=== PATIENT | male | born 1960 | race Caucasian/White ===

== ENCOUNTER 2018-03-16 06:51 | Inpatient (IN) | payer MEDICAID ==
[2018-03-16 07:26] LABS: BASO % 0.7 % (0.0-2.0); EOS # 0.2 K/uL (0.0-0.7); EOS % 2.9 % (0.0-4.0); LYMPH # 1.6 K/uL (1.0-4.3); LYMPH % 22.9 % (20.0-40.0); MEAN CORPUSCULAR HEMOGLOBIN 27.7 pg (27.0-31.0); MEAN CORPUSCULAR HGB CONC 33.9 g/dL (33.0-37.0); MEAN PLATELET VOLUME 7.9 fL (7.2-11.7); MONO # 0.7 K/uL (0.0-0.8); MONO % 10.1 % (0.0-10.0); NEUT # 4.5 K/uL (1.8-7.0); NEUT % 63.4 % (50.0-75.0); RBC 2.32 Mil/uL (4.40-5.90); RED CELL DISTRIBUTION WIDTH 17.3 % (11.5-14.5)
[2018-03-16 07:34] LABS: INR 1.1; PROTHROMBIN TIME 11.6 SECONDS (9.7-12.2)
[2018-03-16 07:40] LABS: HEMOGLOBIN 6.4 g/dL (12.0-18.0); MEAN CELL VOLUME 81.7 fL (80.0-94.0)
[2018-03-16 08:01] LABS: ALB/GLOB RATIO 1.2 (1.0-2.1); ALBUMIN 4.1 g/dL (3.5-5.0); CALCIUM 10.5 mg/dl (8.6-10.4)
--- NOTE | 2018-03-16 08:15 | C.PDOC ---
History Of Present Illness 58-year-old male, presents to the emergency department with complaints of two week duration of chest discomfort, that radiates to neck. Patient was seen at [facility] and is s/p two stents. He is compliant with medications, he has a Hx of normal cardiac nuclear study, cardiac echo with mild hypokinesis and and CABG (five vessel). Additionally, patient reports a Hx of blood transfusion , two units of blood for upper GI bleed, two weeks ago at [facility]. PMD Anabel Friedman MD. Time Seen by Provider: 03/16/18 07:04 Chief Complaint (Nursing): Chest Pain History Per: Patient History/Exam Limitations: no limitations Onset/Duration Of Symptoms: Waxing/Waning Past Medical History Reviewed: Historical Data, Nursing Documentation, Vital Signs Vital Signs: Last Vital Signs Temp 98.1 F 03/16/18 09:41 Pulse 88 03/16/18 09:41 Resp 13 03/16/18 09:41 BP 108/71 03/16/18 09:41 Pulse Ox 95 03/16/18 10:01 - Medical History PMH: Diabetes, HTN, Hypercholesterolemia, Kidney Stones Surgical History: Coronary Stent Family History: States: No Known Family Hx - Social History Hx Tobacco Use: Yes Hx Alcohol Use: No Hx Substance Use: No - Immunization History Hx Influenza Vaccination: Yes Review Of Systems Constitutional: Negative for: Fever, Weakness Cardiovascular: Positive for: Other (chest discomfort) Respiratory: Negative for: Shortness of Breath Gastrointestinal: Negative for: Vomiting Musculoskeletal: Positive for: Neck Pain. Negative for: Arm Pain Neurological: Negative for: Weakness, Numbness, Headache, Dizziness Physical Exam - Physical Exam Appears: Non-toxic, No Acute Distress Skin: Warm, Dry, Pale Head: Normacephalic Eye(s): bilateral: PERRL, EOMI, Conjunctiva Pale Nose: Normal Oral Mucosa: Moist Lips: Normal Appearing Neck: Normal ROM Cardiovascular: Rhythm Regular, No Murmur Respiratory: Normal Breath Sounds, No Accessory Muscle Use Gastrointestinal/Abdominal: Soft, No Tenderness Extremity: Normal ROM, No Deformity, No Swelling Neurological/Psych: Oriented x3, Normal Speech ED Course And Treatment - Laboratory Results Result Diagrams: 03/16/18 07:20 03/16/18 07:20 Lab Interpretation: Abnormal (trop 0.136, HGB + anemia) ECG: Interpreted By Me ECG Rhythm: Sinus Rhythm ECG Interpretation: Normal Rate From EC O2 Sat by Pulse Oximetry: 95 (RA) Pulse Ox Interpretation: Normal - Radiology CXR: Interpreted by Me CXR Interpretation: Yes: No Acute Disease Progress Note: type and cross for PRBC's. SLNTG for chest discomfort (chronic) . no ASA due to bleeding and symptomatic anemia Reevaluation Time: 08:35 Reassessment Condition: Improved - Physician Consult Information Outcome Of Conversation: [phone]: d/w Dr. Friedman- PMD- ok to admit tele Medical Decision Making Medical Decision Making: symptomatic anemia and NSTEMI angina due to heart dz vs symptomatic anemia due to upper GIB (now worse on anticoag for stents x 2- 2 wks ago. Disposition Doctor Will See Patient In The: Hospital Counseled Patient/Family Regarding: Studies Performed, Diagnosis - Disposition Disposition: HOSPITALIZED Disposition Time: 08:37 Condition: GOOD - Clinical Impression Clinical Impression: Chest discomfort, Acute non-ST segment elevation myocardial infarction, UGIB ( upper gastrointestinal bleed) - Scribe Statement The provider has reviewed the documentation as recorded by the Scribe (Du Marrero) All medical record entries made by the Scribe were at my direction and personally dictated by me. I have reviewed the chart and agree that the record accurately reflects my personal performance of the history, physical exam, medical decision making, and the department course for this patient. I have also personally directed, reviewed, and agree with the discharge instructions and disposition.
[2018-03-16 08:18] LABS: TROPONIN I 0.136 ng/mL (0.00-0.120)
--- NOTE | 2018-03-16 08:26 | RAD ---
PROCEDURE: CHEST RADIOGRAPH, 1 VIEW HISTORY: SOB COMPARISON: None available. FINDINGS: LUNGS: Clear. PLEURA: No pneumothorax or pleural fluid seen. CARDIOVASCULAR: Normal heart size. CABG. No congestive change. OSSEOUS STRUCTURES: No significant abnormalities. VISUALIZED UPPER ABDOMEN: Normal. OTHER FINDINGS: None. IMPRESSION: No active disease.
--- NOTE | 2018-03-16 12:43 | CP.PCM.PN ---
Subjective - Date & Time of Evaluation Date of Evaluation: 03/16/18 Time of Evaluation: 12:00 - Subjective Subjective: Mr. Morgan is a 58 years old gentleman with history of diabetes complicated by coronary artery disease. He had coronary artery bypass surgery for triple vessel disease about 6 years ago. 3 months ago he was admitted to [facility] with chest pain and minimally elevated troponin, he had a stent to the OM 2. 2 weeks ago he was admitted with GI bleed, again 2 stents were placed in the saphenous vein to the OM 2. Endoscopy showed gastric tumor to be evaluated when more stable. At this time he was evaluated as outpatient with hemoglobin of 9 on oral iron supplement, was admitted again through the emergency department with chest pain, minimally elevated troponin, and hemoglobin of 7. His latest stress test was negative for ischemia prior to the percutaneous intervention and the ejection fraction is 70%. We will hold on any invasive management since apparently it's created more issues rather than solutions. We will attempt to wait 6 months on 2 agents antiplatelets in addition to other 70 gastric tumor. The latest LDL was 20. Objective - Vital Signs/Intake and Output Vital Signs (last 24 hours): Temp Pulse Resp BP Pulse Ox 98.3 F 90 18 104/63 98 03/16/18 11:25 03/16/18 11:25 03/16/18 11:25 03/16/18 11:25 03/16/18 11:25 Intake and Output: 03/16/18 03/16/18 06:59 18:59 Intake Total 325 Balance 325 - Medications Medications: Current Medications Acetaminophen (Tylenol 325mg Tab) 650 mg PO Q6 PRN PRN Reason: Fever >100.4 F Aspirin (Ecotrin) 1 mg PO DAILY [facility] Clopidogrel Bisulfate (Plavix) 75 mg PO DAILY [facility] Docusate Sodium (Colace) 100 mg PO BID PRN PRN Reason: Constipation Home Med (Famotidine) 1 tab PO DAILY [facility] Home Med (Januvia) 1 tab PO DAILY [facility] Home Med (Metformin Hcl [Metformin Hcl]) 1 tab PO DAILY [facility] Sodium Chloride (Sodium Chloride 0.9%) 1,000 mls @ 100 mls/hr IV .Q10H [facility] Insulin Human Regular (Novolin R) unit SC ACHS [facility] PRN Reason: Protocol Metoprolol Tartrate (Lopressor) 50 mg PO BID [facility] Ondansetron HCl (Zofran Odt) 4 mg PO TID PRN PRN Reason: Nausea/Vomiting Oxycodone/Acetaminophen (Percocet 5/325 Mg Tab) 1 tab PO Q4H PRN PRN Reason: Pain, moderate (4-7) Stop: 03/19/18 12:31 Rosuvastatin Calcium (Crestor) 20 mg PO HS [facility] Tamsulosin HCl (Flomax) 0.4 mg PO DAILY [facility] - Labs Labs: 03/16/18 07:20 03/16/18 07:20 PT 11.6 SECONDS (9.7-12.2) 03/16/18 07:20 INR 1.1 03/16/18 07:20 APTT 32 SECONDS (21-34) 03/16/18 07:20 - Constitutional Appears: Non-toxic - Head Exam Head Exam: ATRAUMATIC - Eye Exam Eye Exam: EOMI - ENT Exam ENT Exam: Mucous Membranes Moist - Neck Exam Neck Exam: absent: Lymphadenopathy, Thyromegaly - Respiratory Exam Respiratory Exam: Clear to Ausculation Bilateral. absent: Rales - Cardiovascular Exam Cardiovascular Exam: REGULAR RHYTHM, Murmur - GI/Abdominal Exam GI & Abdominal Exam: Soft, Normal Bowel Sounds. absent: Organomegaly - Rectal Exam Rectal Exam: Deferred, Black Stool - Extremities Exam Extremities Exam: Normal Capillary Refill. absent: Calf Tenderness - Neurological Exam Neurological Exam: Alert, Oriented x3 - Psychiatric Exam Psychiatric exam: Normal Mood - Skin Skin Exam: Dry Assessment and Plan (1) Status post aorto-coronary artery bypass graft Assessment & Plan: Significant atherosclerotic heart disease with observe Status: Chronic (2) Chest discomfort Assessment & Plan: Minimally elevated troponin we'll hold on intervention for now Status: Acute (3) UGIB (upper gastrointestinal bleed) Assessment & Plan: Follow-up with GI, unfortunately we have to follow up in 2 antiplatelets agents post drug-eluting stents Status: Acute (4) Diabetes 1.5, managed as type 2 Status: Chronic - Assessment and Plan (Free Text) Plan: Adequately controlled as outpatient on coverage for now
[2018-03-16] MEDS ORDERED: Peg-Electrolyte Oral Soln 4L (Golytely) PO ONE (15:30)
[2018-03-16] MEDS: (Novolin R) Insulin Human Regular 100 units/ml vial SC SCH ×2 (16:30→21:54)
[2018-03-16] MEDS: Sodium Chloride 0.9% 1,000 ML IV SCH ×2 (16:51→23:03)
[2018-03-16] MEDS ORDERED: Bisacodyl 5mg EC Tab PO ONE (17:00)
[2018-03-16 22:17] LABS: HEMOGLOBIN 7.5 g/dL (12.0-18.0); MEAN CELL VOLUME 82.9 fL (80.0-94.0); MEAN CORPUSCULAR HEMOGLOBIN 28.2 pg (27.0-31.0); MEAN CORPUSCULAR HGB CONC 34.1 g/dL (33.0-37.0); MEAN PLATELET VOLUME 8.1 fL (7.2-11.7); RBC 2.67 Mil/uL (4.40-5.90); RED CELL DISTRIBUTION WIDTH 17.1 % (11.5-14.5)
[2018-03-16 22:20] LABS: URINE BILIRUBIN NEGATIVE (NEGATIVE); URINE BLOOD NEGATIVE (NEGATIVE); URINE CLARITY Clear (Clear); URINE COLOR Straw (YELLOW); URINE GLUCOSE (UA) NORMAL (Normal); URINE LEUKOCYTE ESTERASE NEG Leu/uL (Negative); URINE PROTEIN NEGATIVE (NEGATIVE); URINE UROBILINOGEN NORMAL mg/dL (0.2-1.0)
[2018-03-17 06:32] LABS: BASO % 0.3 % (0.0-2.0); EOS # 0.1 K/uL (0.0-0.7); EOS % 1.1 % (0.0-4.0); HEMOGLOBIN 7.3 g/dL (12.0-18.0); LYMPH # 1.1 K/uL (1.0-4.3); LYMPH % 12.3 % (20.0-40.0); MEAN CORPUSCULAR HEMOGLOBIN 27.7 pg (27.0-31.0); MEAN CORPUSCULAR HGB CONC 33.8 g/dL (33.0-37.0); MEAN PLATELET VOLUME 7.7 fL (7.2-11.7); MONO # 0.8 K/uL (0.0-0.8); MONO % 9.8 % (0.0-10.0); NEUT # 6.6 K/uL (1.8-7.0); NEUT % 76.5 % (50.0-75.0); RBC 2.63 Mil/uL (4.40-5.90); RED CELL DISTRIBUTION WIDTH 17.6 % (11.5-14.5); WHITE BLOOD COUNT 8.6 K/uL (4.8-10.8)
[2018-03-17 06:53] LABS: ALB/GLOB RATIO 1.2 (1.0-2.1); ALBUMIN 3.7 g/dL (3.5-5.0); ALT/SGPT 24 U/L (21-72); AST/SGOT 19 U/L (17-59); BLOOD UREA NITROGEN 18 mg/dL (9-20); CALCIUM 9.9 mg/dl (8.6-10.4); GFR AFRICAN-AMERICAN > 60; GFR NON-AFRICAN AMERICAN 56; HDL CHOLESTEROL 24 mg/dL (30-70)
[2018-03-17] MEDS: (Novolin R) Insulin Human Regular 100 units/ml vial SC SCH ×4 (07:00→21:36)
[2018-03-17 07:08] LABS: LDL CHOLESTEROL < 30 mg/dL (0-129)
[2018-03-17] MEDS: Sodium Chloride 0.9% 1,000 ML IV SCH (08:30)
--- NOTE | 2018-03-17 12:15 | CARD ---
APPROVED REPORT EKG Measurement Heart [id number] <Conclusion> Sinus rhythm with 1st degree AV block Left axis deviation Right bundle branch block Abnormal ECG
--- NOTE | 2018-03-17 12:15 | CARD ---
APPROVED REPORT EKG Measurement Heart [id number] <Conclusion> Sinus rhythm with 1st degree AV block Left axis deviation Right bundle branch block Abnormal ECG
[2018-03-17] MEDS: Oxycodone/Acetaminophen 5/325 mg Tab PO PRN ×2 (14:36→21:32)
[2018-03-17] MEDS: guaiFENesin 200 mg/10 ml Syrup UD PO PRN ×3 (15:02→23:58)
--- NOTE | 2018-03-17 15:35 | CP.PCM.CON ---
History of Present Illness - History of Present Illness History of Present Illness: 58 year old male with a history of DM, HTN, HL, BPH, CAD s/p CABG and recent PCI with ANN[facility], admitted with chest pain, found to have severe anemia. The patient notes to dark stools and long stand blood streaked stool. He reports intermittent chest pain for about 2-3 weeks, associated with some shortness of breath. He denies cough, fevers and chills. He is s/p 1U PRBC and reports to feeling better but still feels tired. Past medical history: DM, HTN, HL, BPH, CAD s/p CABG and recent PCI with [facility] Past surgical history: CABG Family history: Denies hematologic and oncologic problems Social history: Former tobacco abuse, denies alcohol and illicit drug use. Allergies: NKA Review of systems: All remaining review of systems including HEENT, cardiovascular, respiratory, gastrointestinal, genitourinary,musculoskeletal, dermatologic, neurologic, and psychiatric are negative unless mentioned in the HPI. Past Patient History - Past Medical History & Family History Past Medical History?: Yes - Past Social History Smoking Status: Never Smoked - CARDIAC Hx Hypercholesterolemia: Yes Hx Hypertension: Yes - RENAL Hx Kidney Stones: Yes - MUSCULOSKELETAL/RHEUMATOLOGICAL Hx Falls: No - PSYCHIATRIC Hx Substance Use: No - SURGICAL HISTORY Hx Coronary Stent: Yes Meds Allergies/Adverse Reactions: Allergies Allergy/AdvReac Type Severity Reaction Status Date / Time No Known Allergies Allergy Verified 03/07/15 11:07 - Medications Medications: Current Medications Acetaminophen (Tylenol 325mg Tab) 650 mg PO Q6 PRN PRN Reason: Fever >100.4 F Aspirin (Ecotrin) 81 mg PO DAILY [facility] Last Admin: 03/17/18 12:46 Dose: 81 mg Clopidogrel Bisulfate (Plavix) 75 mg PO DAILY [facility] Last Admin: 03/17/18 12:45 Dose: 75 mg Docusate Sodium (Colace) 100 mg PO BID PRN PRN Reason: Constipation Famotidine (Pepcid) 20 mg PO DAILY [facility] Last Admin: 03/17/18 12:38 Dose: 20 mg Guaifenesin (Robitussin) 200 mg PO Q4H PRN PRN Reason: Cough and congestion Last Admin: 03/17/18 15:02 Dose: 200 mg Sodium Chloride (Sodium Chloride 0.9%) 1,000 mls @ 100 mls/hr IV .Q10H [facility] Last Admin: 03/17/18 08:30 Dose: Not Given Insulin Human Regular (Novolin R) 0 unit SC ACHS [facility] PRN Reason: Protocol Last Admin: 03/17/18 11:30 Dose: Not Given [facility] Last Admin: 03/17/18 08:00 Dose: Not Given Metoprolol Tartrate (Lopressor) 50 mg PO BID [facility] Last Admin: 03/17/18 12:45 Dose: 50 mg Ondansetron HCl (Zofran Odt) 4 mg PO TID PRN PRN Reason: Nausea/Vomiting Ondansetron HCl (Zofran Inj) 8 mg IVP Q6H [facility] Last Admin: 03/17/18 14:30 Dose: Not Given Oxycodone/Acetaminophen (Percocet 5/325 Mg Tab) 1 tab PO Q4H PRN PRN Reason: Pain, moderate (4-7) Stop: 03/19/18 12:31 Last Admin: 03/17/18 14:36 Dose: 1 tab Rosuvastatin Calcium (Crestor) 20 mg PO [facility] Last Admin: 03/16/18 21:21 Dose: 20 mg Sitagliptin Phosphate (Januvia) 100 mg PO DAILY [facility] Last Admin: 03/17/18 10:00 Dose: Not Given Tamsulosin HCl (Flomax) 0.4 mg PO DAILY [facility] Last Admin: 03/17/18 12:44 Dose: 0.4 mg Physical Exam - Head Exam Head Exam: ATRAUMATIC - Eye Exam Eye Exam: Normal appearance - ENT Exam ENT Exam: Mucous Membranes Dry - Respiratory Exam Respiratory Exam: NORMAL BREATHING PATTERN - Cardiovascular Exam Cardiovascular Exam: +S1, +S2 - GI/Abdominal Exam GI & Abdominal Exam: Normal Bowel Sounds Results - Vital Signs Recent Vital Signs: Last Vital Signs Temp 98.2 F 03/17/18 08:30 Pulse 80 03/17/18 08:30 Resp 18 03/17/18 08:30 BP 111/77 03/17/18 08:30 Pulse Ox 94 L 03/17/18 08:30 - Labs Result Diagrams: 03/17/18 06:26 03/17/18 06:26 Labs: Laboratory Results - last 24 hr 03/16/18 03/16/18 03/16/18 16:22 21:30 22:10 WBC RBC Hgb Hct MCV MCH MCHC RDW Plt Count MPV Neut % (Auto) Lymph % (Auto) Dillon % (Auto) Eos % (Auto) Baso % (Auto) Neut # (Auto) Lymph # (Auto) Dillon # (Auto) Eos # (Auto) Baso # (Auto) Sodium Potassium Chloride Carbon Dioxide Anion Gap BUN Creatinine Est GFR ( Amer) Est GFR (Non-Af Amer) POC Glucose (mg/dL) 122 H 167 H Random Glucose Hemoglobin A1c Calcium Total Bilirubin AST ALT Alkaline Phosphatase Troponin I Total Protein Albumin Globulin Albumin/Globulin Ratio Triglycerides Cholesterol LDL Cholesterol Direct HDL Cholesterol Alpha Fetoprotein Carcinoembryonic Ag CA 19-9 Antigen TSH 3rd Generation Urine Color Straw Urine Clarity Clear Urine pH 6.0 Ur Specific [place] 1.005 Urine Protein Negative Urine Glucose (UA) Normal Urine Ketones Negative Urine Blood Negative Urine Nitrate Negative Urine Bilirubin Negative Urine Urobilinogen Normal Ur Leukocyte Esterase Neg Urine RBC (Auto) < 1 Stool Occult Blood 03/16/18 03/16/18 03/16/18 22:10 22:10 22:10 WBC 9.0 RBC 2.67 L Hgb 7.5 L Hct 22.2 L MCV 82.9 MCH 28.2 MCHC 34.1 RDW 17.1 H Plt Count 368 MPV 8.1 Neut % (Auto) Lymph % (Auto) Dillon % (Auto) Eos % (Auto) Baso % (Auto) Neut # (Auto) Lymph # (Auto) Dillon # (Auto) Eos # (Auto) Baso # (Auto) Sodium Potassium Chloride Carbon Dioxide Anion Gap BUN Creatinine Est GFR ( Amer) Est GFR (Non-Af Amer) POC Glucose (mg/dL) Random Glucose Hemoglobin A1c Calcium Total Bilirubin AST ALT Alkaline Phosphatase Troponin I 0.1490 H* Total Protein Albumin Globulin Albumin/Globulin Ratio Triglycerides Cholesterol LDL Cholesterol Direct HDL Cholesterol Alpha Fetoprotein Carcinoembryonic Ag CA 19-9 Antigen TSH 3rd Generation Urine Color Urine Clarity Urine pH Ur Specific [place] Urine Protein Urine Glucose (UA) Urine Ketones Urine Blood Urine Nitrate Urine Bilirubin Urine Urobilinogen Ur Leukocyte Esterase Urine RBC (Auto) Stool Occult Blood Positive H 03/17/18 03/17/18 03/17/18 05:58 06:26 06:26 WBC 8.6 RBC 2.63 L Hgb 7.3 L Hct 21.6 L MCV 82.0 MCH 27.7 MCHC 33.8 RDW 17.6 H Plt Count 372 MPV 7.7 Neut % (Auto) 76.5 H Lymph % (Auto) 12.3 L Dillon % (Auto) 9.8 Eos % (Auto) 1.1 Baso % (Auto) 0.3 Neut # (Auto) 6.6 Lymph # (Auto) 1.1 Dillon # (Auto) 0.8 Eos # (Auto) 0.1 Baso # (Auto) 0.0 Sodium 137 Potassium 4.1 Chloride 105 Carbon Dioxide 21 L Anion Gap 15 BUN 18 Creatinine 1.3 Est GFR ( Amer) > 60 Est GFR (Non-Af Amer) 56 POC Glucose (mg/dL) 167 H Random Glucose 170 H Hemoglobin A1c Calcium 9.9 Total Bilirubin 0.9 AST 19 ALT 24 Alkaline Phosphatase 65 Troponin I 0.1580 H* Total Protein 6.7 Albumin 3.7 Globulin 3.1 Albumin/Globulin Ratio 1.2 Triglycerides 237 H Cholesterol 85 LDL Cholesterol Direct < 30 HDL Cholesterol 24 L Alpha Fetoprotein Carcinoembryonic Ag CA 19-9 Antigen TSH 3rd Generation 0.34 L Urine Color Urine Clarity Urine pH Ur Specific [place] Urine Protein Urine Glucose (UA) Urine Ketones Urine Blood Urine Nitrate Urine Bilirubin Urine Urobilinogen Ur Leukocyte Esterase Urine RBC (Auto) Stool Occult Blood 03/17/18 03/17/18 03/17/18 06:26 14:04 14:04 WBC RBC Hgb Hct MCV MCH MCHC RDW Plt Count MPV Neut % (Auto) Lymph % (Auto) Dillon % (Auto) Eos % (Auto) Baso % (Auto) Neut # (Auto) Lymph # (Auto) Dillon # (Auto) Eos # (Auto) Baso # (Auto) Sodium Potassium Chloride Carbon Dioxide Anion Gap BUN Creatinine Est GFR ( Amer) Est GFR (Non-Af Amer) POC Glucose (mg/dL) Random Glucose Hemoglobin A1c 6.2 Calcium Total Bilirubin AST ALT Alkaline Phosphatase Troponin I Total Protein Albumin Globulin Albumin/Globulin Ratio Triglycerides Cholesterol LDL Cholesterol Direct HDL Cholesterol Alpha Fetoprotein 1.2 Carcinoembryonic Ag 0.7 CA 19-9 Antigen 8.1 TSH 3rd Generation Urine Color Urine Clarity Urine pH Ur Specific [place] Urine Protein Urine Glucose (UA) Urine Ketones Urine Blood Urine Nitrate Urine Bilirubin Urine Urobilinogen Ur Leukocyte Esterase Urine RBC (Auto) Stool Occult Blood Assessment & Plan (1) Anemia Assessment and Plan: GI bleeding; GI evaluation in progress will evaluate iron, b12, folate stores and replenish as needed will transfuse 2U PRBC today Thank you for this interesting consult. Status: Acute
--- NOTE | 2018-03-17 16:47 | CP.PCM.HP ---
History of Present Illness - History of Present Illness History of Present Illness: Mr. Morgan is a 58 years old gentleman with history of diabetes complicated by coronary artery disease. He had coronary artery bypass surgery for triple vessel disease about 6 years ago. 3 months ago he was admitted to [facility] with chest pain and minimally elevated troponin, he had a stent to the OM 2. 2 weeks ago he was admitted with GI bleed, again 2 stents were placed in the saphenous vein to the OM 2. Endoscopy showed gastric tumor to be evaluated when more stable. At this time he was evaluated as outpatient with hemoglobin of 9 on oral iron supplement, was admitted again through the emergency department with chest pain, minimally elevated troponin, and hemoglobin of 7. His latest stress test was negative for ischemia prior to the percutaneous intervention and the ejection fraction is 70%. We will hold on any invasive management since apparently it's created more issues rather than solutions. We will attempt to wait 6 months on 2 agents antiplatelets in addition to other 70 gastric tumor. The latest LDL was 20. Present on Admission - Present on Admission Any Indicators Present on Admission: No Review of Systems - Review of Systems Systems not reviewed;Unavailable: Unstable Vital Signs - Constitutional Constitutional: Anorexia, Weakness - EENT Eyes: absent: Discharge Ears: absent: Ear Discharge, Dizziness Nose/Mouth/Throat: absent: Epistaxis - Cardiovascular Cardiovascular: Chest Pain. absent: Acrocyanosis, Diaphoresis, Dyspnea, Palpitations, Pedal Edema, Syncope - Respiratory Respiratory: absent: Cough, Dyspnea, Hemoptysis - Gastrointestinal Gastrointestinal: Abdominal Pain, Diarrhea, Melena. absent: Nausea, Vomiting - Genitourinary Genitourinary: absent: Change in Urinary Stream Past Patient History - Past Medical History & Family History Past Medical History?: Yes - Past Social History Smoking Status: Never Smoked - CARDIAC Hx Hypercholesterolemia: Yes Hx Hypertension: Yes - RENAL Hx Kidney Stones: Yes - MUSCULOSKELETAL/RHEUMATOLOGICAL Hx Falls: No - PSYCHIATRIC Hx Substance Use: No - SURGICAL HISTORY Hx Coronary Stent: Yes Meds Allergies/Adverse Reactions: Allergies Allergy/AdvReac Type Severity Reaction Status Date / Time No Known Allergies Allergy Verified 03/07/15 11:07 Physical Exam - Constitutional Appears: Non-toxic - Head Exam Head Exam: ATRAUMATIC - Eye Exam Eye Exam: EOMI - ENT Exam ENT Exam: Mucous Membranes Moist - Neck Exam Neck exam: Negative for: Lymphadenopathy, Thyromegaly - Respiratory Exam Respiratory Exam: absent: Chest Wall Tenderness - Cardiovascular Exam Cardiovascular Exam: REGULAR RHYTHM, Systolic Murmur - GI/Abdominal Exam GI & Abdominal Exam: Normal Bowel Sounds. absent: Organomegaly - Rectal Exam Rectal Exam: Deferred - Extremities Exam Extremities exam: Positive for: normal capillary refill. Negative for: calf tenderness - Neurological Exam Neurological exam: Alert, Oriented x3 - Psychiatric Exam Psychiatric exam: Normal Mood - Skin Skin Exam: Dry Results - Vital Signs Recent Vital Signs: Last Vital Signs Temp 97.6 F 03/17/18 15:00 Pulse 78 03/17/18 16:00 Resp 20 03/17/18 15:00 BP 97/62 L 03/17/18 15:00 Pulse Ox 96 03/17/18 15:00 - Labs Result Diagrams: 03/17/18 06:26 03/17/18 06:26 Labs: Laboratory Results - last 24 hr 03/16/18 03/16/18 03/16/18 08:37 21:30 22:10 WBC RBC Hgb Hct MCV MCH MCHC RDW Plt Count MPV Neut % (Auto) Lymph % (Auto) [place] % (Auto) Eos % (Auto) Baso % (Auto) Neut # (Auto) Lymph # (Auto) [place] # (Auto) Eos # (Auto) Baso # (Auto) Sodium Potassium Chloride Carbon Dioxide Anion Gap BUN Creatinine Est GFR ( Amer) Est GFR (Non-Af Amer) POC Glucose (mg/dL) 167 H Random Glucose Hemoglobin A1c Calcium Total Bilirubin AST ALT Alkaline Phosphatase Troponin I Total Protein Albumin Globulin Albumin/Globulin Ratio Triglycerides Cholesterol LDL Cholesterol Direct HDL Cholesterol Alpha Fetoprotein Carcinoembryonic Ag CA 19-9 Antigen TSH 3rd Generation Urine Color Straw Urine Clarity Clear Urine pH 6.0 Ur Specific [place] 1.005 Urine Protein Negative Urine Glucose (UA) Normal Urine Ketones Negative Urine Blood Negative Urine Nitrate Negative Urine Bilirubin Negative Urine Urobilinogen Normal Ur Leukocyte Esterase Neg Urine RBC (Auto) < 1 Stool Occult Blood Blood Type A POSITIVE Blood Type Confirm A POSITIVE Antibody Screen Negative 03/16/18 03/16/18 03/16/18 22:10 22:10 22:10 WBC 9.0 RBC 2.67 L Hgb 7.5 L Hct 22.2 L MCV 82.9 MCH 28.2 MCHC 34.1 RDW 17.1 H Plt Count 368 MPV 8.1 Neut % (Auto) Lymph % (Auto) [place] % (Auto) Eos % (Auto) Baso % (Auto) Neut # (Auto) Lymph # (Auto) [place] # (Auto) Eos # (Auto) Baso # (Auto) Sodium Potassium Chloride Carbon Dioxide Anion Gap BUN Creatinine Est GFR ( Amer) Est GFR (Non-Af Amer) POC Glucose (mg/dL) Random Glucose Hemoglobin A1c Calcium Total Bilirubin AST ALT Alkaline Phosphatase Troponin I 0.1490 H* Total Protein Albumin Globulin Albumin/Globulin Ratio Triglycerides Cholesterol LDL Cholesterol Direct HDL Cholesterol Alpha Fetoprotein Carcinoembryonic Ag CA 19-9 Antigen TSH 3rd Generation Urine Color Urine Clarity Urine pH Ur Specific [place] Urine Protein Urine Glucose (UA) Urine Ketones Urine Blood Urine Nitrate Urine Bilirubin Urine Urobilinogen Ur Leukocyte Esterase Urine RBC (Auto) Stool Occult Blood Positive H Blood Type Blood Type Confirm Antibody Screen 03/17/18 03/17/18 03/17/18 05:58 06:26 06:26 WBC 8.6 RBC 2.63 L Hgb 7.3 L Hct 21.6 L MCV 82.0 MCH 27.7 MCHC 33.8 RDW 17.6 H Plt Count 372 MPV 7.7 Neut % (Auto) 76.5 H Lymph % (Auto) 12.3 L [place] % (Auto) 9.8 Eos % (Auto) 1.1 Baso % (Auto) 0.3 Neut # (Auto) 6.6 Lymph # (Auto) 1.1 [place] # (Auto) 0.8 Eos # (Auto) 0.1 Baso # (Auto) 0.0 Sodium 137 Potassium 4.1 Chloride 105 Carbon Dioxide 21 L Anion Gap 15 BUN 18 Creatinine 1.3 Est GFR ( Amer) > 60 Est GFR (Non-Af Amer) 56 POC Glucose (mg/dL) 167 H Random Glucose 170 H Hemoglobin A1c Calcium 9.9 Total Bilirubin 0.9 AST 19 ALT 24 Alkaline Phosphatase 65 Troponin I 0.1580 H* Total Protein 6.7 Albumin 3.7 Globulin 3.1 Albumin/Globulin Ratio 1.2 Triglycerides 237 H Cholesterol 85 LDL Cholesterol Direct < 30 HDL Cholesterol 24 L Alpha Fetoprotein Carcinoembryonic Ag CA 19-9 Antigen TSH 3rd Generation 0.34 L Urine Color Urine Clarity Urine pH Ur Specific [place] Urine Protein Urine Glucose (UA) Urine Ketones Urine Blood Urine Nitrate Urine Bilirubin Urine Urobilinogen Ur Leukocyte Esterase Urine RBC (Auto) Stool Occult Blood Blood Type Blood Type Confirm Antibody Screen 03/17/18 03/17/18 03/17/18 06:26 14:04 14:04 WBC RBC Hgb Hct MCV MCH MCHC RDW Plt Count MPV Neut % (Auto) Lymph % (Auto) [place] % (Auto) Eos % (Auto) Baso % (Auto) Neut # (Auto) Lymph # (Auto) [place] # (Auto) Eos # (Auto) Baso # (Auto) Sodium Potassium Chloride Carbon Dioxide Anion Gap BUN Creatinine Est GFR ( Amer) Est GFR (Non-Af Amer) POC Glucose (mg/dL) Random Glucose Hemoglobin A1c 6.2 Calcium Total Bilirubin AST ALT Alkaline Phosphatase Troponin I Total Protein Albumin Globulin Albumin/Globulin Ratio Triglycerides Cholesterol LDL Cholesterol Direct HDL Cholesterol Alpha Fetoprotein 1.2 Carcinoembryonic Ag 0.7 CA 19-9 Antigen 8.1 TSH 3rd Generation Urine Color Urine Clarity Urine pH Ur Specific [place] Urine Protein Urine Glucose (UA) Urine Ketones Urine Blood Urine Nitrate Urine Bilirubin Urine Urobilinogen Ur Leukocyte Esterase Urine RBC (Auto) Stool Occult Blood Blood Type Blood Type Confirm Antibody Screen 03/17/18 16:05 WBC RBC Hgb Hct MCV MCH MCHC RDW Plt Count MPV Neut % (Auto) Lymph % (Auto) [place] % (Auto) Eos % (Auto) Baso % (Auto) Neut # (Auto) Lymph # (Auto) [place] # (Auto) Eos # (Auto) Baso # (Auto) Sodium Potassium Chloride Carbon Dioxide Anion Gap BUN Creatinine Est GFR ( Amer) Est GFR (Non-Af Amer) POC Glucose (mg/dL) 252 H Random Glucose Hemoglobin A1c Calcium Total Bilirubin AST ALT Alkaline Phosphatase Troponin I Total Protein Albumin Globulin Albumin/Globulin Ratio Triglycerides Cholesterol LDL Cholesterol Direct HDL Cholesterol Alpha Fetoprotein Carcinoembryonic Ag CA 19-9 Antigen TSH 3rd Generation Urine Color Urine Clarity Urine pH Ur Specific [place] Urine Protein Urine Glucose (UA) Urine Ketones Urine Blood Urine Nitrate Urine Bilirubin Urine Urobilinogen Ur Leukocyte Esterase Urine RBC (Auto) Stool Occult Blood Blood Type Blood Type Confirm Antibody Screen Assessment & Plan (1) Status post aorto-coronary artery bypass graft Assessment and Plan: stable Status: Chronic (2) Chest discomfort Assessment and Plan: elevate tni always Status: Acute (3) UGIB (upper gastrointestinal bleed) Assessment and Plan: for transfusion Status: Acute (4) Diabetes 1.5, managed as type 2 Status: Chronic Decision To Admit - Pt Status Changed To: Hospital Disposition Of: Inpatient - Admit Certification Admit to Inpatient:: After my assessment, the patient will require hospitalization for at least two midnights. This is because of the severity of symptoms shown, intensity of services needed, and/or the medical risk in this patient being treated as an outpatient. - InPatient: Physician Admission Certification:: yes - . Bed Request Type: Telemetry
--- NOTE | 2018-03-17 16:57 | CP.PCM.PN ---
Subjective - Date & Time of Evaluation Date of Evaluation: 03/17/18 Time of Evaluation: 13:00 - Subjective Subjective: for w/u by GI stable cardiac can undergo EGD and colonoscopy, TNI is always elevated minimally, no [place] Objective - Vital Signs/Intake and Output Vital Signs (last 24 hours): Temp Pulse Resp BP Pulse Ox 97.6 F 78 20 97/62 L 96 03/17/18 15:00 03/17/18 16:00 03/17/18 15:00 03/17/18 15:00 03/17/18 15:00 Intake and Output: 03/17/18 03/17/18 06:59 18:59 Intake Total 750 Output Total 1 Balance 749 - Medications Medications: Current Medications Acetaminophen (Tylenol 325mg Tab) 650 mg PO Q6 PRN PRN Reason: Fever >100.4 F Aspirin (Ecotrin) 81 mg PO DAILY [facility] Last Admin: 03/17/18 12:46 Dose: 81 mg Clopidogrel Bisulfate (Plavix) 75 mg PO DAILY [facility] Last Admin: 03/17/18 12:45 Dose: 75 mg Docusate Sodium (Colace) 100 mg PO BID PRN PRN Reason: Constipation Famotidine (Pepcid) 20 mg PO DAILY [facility] Last Admin: 03/17/18 12:38 Dose: 20 mg Guaifenesin (Robitussin) 200 mg PO Q4H PRN PRN Reason: Cough and congestion Last Admin: 03/17/18 15:02 Dose: 200 mg Sodium Chloride (Sodium Chloride 0.9%) 1,000 mls @ 100 mls/hr IV .Q10H [facility] Last Admin: 03/17/18 08:30 Dose: Not Given Insulin Human Regular (Novolin R) 0 unit SC ACHS [facility] PRN Reason: Protocol Last Admin: 03/17/18 16:50 Dose: 4 unit Metformin HCl (Glucophage) 500 mg PO BIDCC [facility] Last Admin: 03/17/18 16:50 Dose: 500 mg Metoprolol Tartrate (Lopressor) 50 mg PO BID [facility] Last Admin: 03/17/18 12:45 Dose: 50 mg Ondansetron HCl (Zofran Odt) 4 mg PO TID PRN PRN Reason: Nausea/Vomiting Ondansetron HCl (Zofran Inj) 8 mg IVP Q6H [facility] Last Admin: 03/17/18 14:30 Dose: Not Given Oxycodone/Acetaminophen (Percocet 5/325 Mg Tab) 1 tab PO Q4H PRN PRN Reason: Pain, moderate (4-7) Stop: 03/19/18 12:31 Last Admin: 03/17/18 14:36 Dose: 1 tab Rosuvastatin Calcium (Crestor) 20 mg PO [facility] Last Admin: 03/16/18 21:21 Dose: 20 mg Sitagliptin Phosphate (Januvia) 100 mg PO DAILY [facility] Last Admin: 03/17/18 10:00 Dose: Not Given Tamsulosin HCl (Flomax) 0.4 mg PO DAILY [facility] Last Admin: 03/17/18 12:44 Dose: 0.4 mg - Labs Labs: 03/17/18 06:26 03/17/18 06:26 PT 11.6 SECONDS (9.7-12.2) 03/16/18 07:20 INR 1.1 03/16/18 07:20 APTT 32 SECONDS (21-34) 03/16/18 07:20 - Constitutional Appears: Non-toxic - Head Exam Head Exam: ATRAUMATIC - Eye Exam Eye Exam: EOMI - ENT Exam ENT Exam: Mucous Membranes Moist - Neck Exam Neck Exam: absent: Lymphadenopathy, Thyromegaly - Respiratory Exam Respiratory Exam: Clear to Ausculation Bilateral. absent: Rales - Cardiovascular Exam Cardiovascular Exam: REGULAR RHYTHM, Murmur - GI/Abdominal Exam GI & Abdominal Exam: Normal Bowel Sounds. absent: Organomegaly - Rectal Exam Rectal Exam: Deferred - Extremities Exam Extremities Exam: Calf Tenderness. absent: Normal Capillary Refill - Neurological Exam Neurological Exam: Alert, Oriented x3 - Psychiatric Exam Psychiatric exam: Normal Mood - Skin Skin Exam: Dry Assessment and Plan (1) Status post aorto-coronary artery bypass graft Status: Chronic (2) Chest discomfort Status: Acute (3) UGIB (upper gastrointestinal bleed) Status: Acute (4) Diabetes 1.5, managed as type 2 Status: Chronic
--- NOTE | 2018-03-17 17:13 | PN ---
DATE: 03/17/2018 LOCATION: 651, Bed A. SUBJECTIVE: This is a 58-year-old male seen and examined for GI consultation initially on 03/16/2018 as requested by the admitting MD, with the complaint of recurrent rectal bleeding, was found to have low hemoglobin and hematocrit. The patient has no complaint of chest pain or palpitations. The patient was scheduled for colonoscopy to be done today. However, after being in the endoscopy room, it was found that the most recent lab results showed elevated troponin level. At this point, the case was discussed with the Anesthesia staff and it was decided to cancel the procedure until the patient is fully reevaluated by the admitting MD, Dr. Friedman and when he is more stable clinically from the cardiology point of view. The patient also needs blood transfusion to get hemoglobin around 10 gm%. Further recommendation as per order sheet and the cancer markers to be ordered. We will perform colonoscopy only when the patient's mood is stable clinically. Thank you for letting me participate in your patient's case management. Yomaira Mcrae MD
[2018-03-18] MEDS: Oxycodone/Acetaminophen 5/325 mg Tab PO PRN ×4 (04:44→21:52)
[2018-03-18] MEDS: Sodium Chloride 0.9% 1,000 ML IV SCH (05:00)
[2018-03-18 06:38] LABS: BASO % 0.4 % (0.0-2.0); EOS # 0.1 K/uL (0.0-0.7); EOS % 0.6 % (0.0-4.0); HEMOGLOBIN 8.8 g/dL (12.0-18.0); LYMPH # 0.9 K/uL (1.0-4.3); LYMPH % 9.2 % (20.0-40.0); MEAN CELL VOLUME 82.8 fL (80.0-94.0); MEAN CORPUSCULAR HEMOGLOBIN 28.2 pg (27.0-31.0); MEAN CORPUSCULAR HGB CONC 34.1 g/dL (33.0-37.0); MEAN PLATELET VOLUME 7.5 fL (7.2-11.7); MONO # 0.9 K/uL (0.0-0.8); MONO % 9.4 % (0.0-10.0); NEUT # 7.7 K/uL (1.8-7.0); NEUT % 80.4 % (50.0-75.0); PLATELET COUNT 318 K/uL (130-400); RBC 3.11 Mil/uL (4.40-5.90); WHITE BLOOD COUNT 9.6 K/uL (4.8-10.8)
[2018-03-18 07:28] LABS: FERRITIN 11.5 ng/mL
[2018-03-18 07:58] LABS: FOLATE > 20.0 ng/mL
[2018-03-18] MEDS: (Novolin R) Insulin Human Regular 100 units/ml vial SC SCH ×4 (08:57→21:53)
[2018-03-18 09:14] LABS: LYMPHOCYTE 4 % (20-40); MONOCYTE 6 % (0-10); TOTAL CELLS COUNTED 100
[2018-03-18 09:15] LABS: ANISOCYTOSIS SLIGHT; HYPOCHROMIC SLIGHT; NEUTROPHIL 90 % (50-75); OVALOCYTES SLIGHT; PLATELET ESTIMATE NORMAL (NORMAL); POLYCHROMIC SLIGHT
[2018-03-18] MEDS: guaiFENesin 200 mg/10 ml Syrup UD PO PRN ×2 (10:51→21:57)
[2018-03-18] MEDS ORDERED: Bisacodyl 5mg EC Tab PO ONE (14:00)
[2018-03-18] MEDS ORDERED: Magnesium Citrate Oral SOL (300 ml) PO ONE ×2 (16:00→18:16)
--- NOTE | 2018-03-18 18:53 | PN ---
DATE: 03/18/2018 LOCATION: 651, Bed A. SUBJECTIVE: This is a 58-year-old male seen and examined in rounds with recurrent bowel movement post colonoscopy preparation. The patient had no colonoscopy due to his cardiac status. The entire chart is reviewed including, but not limited to, the most recent lab and radiology study results, current and previous medication list, current and previous medical events. It has to be mentioned that the patient has no evidence of active bleeding this morning and today's lab showed hemoglobin 8.8, hematocrit 25.7 with normal platelet count, with blood glucose level 207 with normal cancer markers. PHYSICAL EXAMINATION: GENERAL: A 58-year-old male. VITAL SIGNS: Afebrile with heart rate of 82, respiratory rate 20 to 22, blood pressure of 110/66. HEENT: Showed pale, dry oral mucous membrane. Nonicteric sclera. LUNGS: Few scattered crepitations. Decreased air entry at bases. HEART: Positive S1 and S2. EXTREMITIES: Without edema, clubbing, or cyanosis. NEUROLOGIC: No neurological deficits, sensory or motor. IMPRESSION: 1. Chest discomfort, no evidence of myocardial infarction with status post coronary artery bypass graft. 2. Gastrointestinal bleeding. 3. Known history of diabetes mellitus. 4. Anemia most likely secondary to above. SUGGESTIONS: It has to be mentioned that the case discussed at length with Dr. Friedman during this round and during this dictation time. He advised that the patient is stable clinically and can go for colonoscopy at a.m. We will perform colonoscopy at a.m. after more preparation. Yomaira Mcrae MD
--- NOTE | 2018-03-18 21:14 | CP.PCM.PN ---
Subjective - Date & Time of Evaluation Date of Evaluation: 03/18/18 Time of Evaluation: 12:00 - Subjective Subjective: Hemoglobin up to 8.8 after transfusion, discussed with GI for further endoscopy , discussed with oncology follow-up with questionable gastric tumor Objective - Vital Signs/Intake and Output Vital Signs (last 24 hours): Temp Pulse Resp BP Pulse Ox 98.3 F 72 18 103/68 95 03/18/18 15:51 03/18/18 15:51 03/18/18 15:51 03/18/18 15:51 03/18/18 15:51 - Medications Medications: Current Medications Acetaminophen (Tylenol 325mg Tab) 650 mg PO Q6 PRN PRN Reason: Fever >100.4 F Aspirin (Ecotrin) 81 mg PO DAILY [facility] Last Admin: 03/18/18 10:51 Dose: 81 mg Clopidogrel Bisulfate (Plavix) 75 mg PO DAILY [facility] Last Admin: 03/18/18 10:51 Dose: 75 mg Docusate Sodium (Colace) 100 mg PO BID PRN PRN Reason: Constipation Last Admin: 03/18/18 17:13 Dose: 100 mg Famotidine (Pepcid) 20 mg PO DAILY [facility] Last Admin: 03/18/18 10:51 Dose: 20 mg Ferric Sodium Gluconate Complex (Ferrlecit) 125 mg IVPB DAILY [facility] Stop: 03/27/18 10:01 Guaifenesin (Robitussin) 200 mg PO Q4H PRN PRN Reason: Cough and congestion Last Admin: 03/18/18 10:51 Dose: 200 mg Insulin Human Regular (Novolin R) [facility] PRN Reason: Protocol Last Admin: 03/18/18 18:34 Dose: 2 unit [facility] Last Admin: 03/18/18 17:13 Dose: 500 mg Metoclopramide HCl (Reglan) 5 mg IVP Q6H [facility] Last Admin: 03/18/18 18:34 Dose: 5 mg Metoprolol Tartrate (Lopressor) 50 mg PO BID [facility] Last Admin: 03/18/18 18:33 Dose: 50 mg Oxycodone/Acetaminophen (Percocet 5/325 Mg Tab) 1 tab PO Q4H PRN PRN Reason: Pain, moderate (4-7) Stop: 05/26/18 16:09 Last Admin: 03/18/18 17:14 Dose: 1 tab Rosuvastatin Calcium (Crestor) 20 mg PO HS [facility] Last Admin: 03/17/18 21:34 Dose: 20 mg Sitagliptin Phosphate (Januvia) 100 mg PO DAILY [facility] Last Admin: 03/18/18 10:51 Dose: 100 mg Tamsulosin HCl (Flomax) 0.4 mg PO DAILY [facility] Last Admin: 03/18/18 10:51 Dose: 0.4 mg - Labs Labs: 03/18/18 06:30 03/17/18 06:26 PT 11.6 SECONDS (9.7-12.2) 03/16/18 07:20 INR 1.1 03/16/18 07:20 APTT 32 SECONDS (21-34) 03/16/18 07:20 - Constitutional Appears: Non-toxic - Head Exam Head Exam: ATRAUMATIC - Eye Exam Eye Exam: EOMI - ENT Exam ENT Exam: Mucous Membranes Moist - Neck Exam Neck Exam: absent: Lymphadenopathy, Thyromegaly - Respiratory Exam Respiratory Exam: Clear to Ausculation Bilateral. absent: Rales - Cardiovascular Exam Cardiovascular Exam: REGULAR RHYTHM, Murmur - GI/Abdominal Exam GI & Abdominal Exam: Normal Bowel Sounds. absent: Organomegaly - Rectal Exam Rectal Exam: Deferred - Extremities Exam Extremities Exam: Normal Capillary Refill. absent: Calf Tenderness - Neurological Exam Neurological Exam: Alert, Oriented x3 - Psychiatric Exam Psychiatric exam: Agitated - Skin Skin Exam: Dry Assessment and Plan (1) Status post aorto-coronary artery bypass graft Status: Chronic (2) Chest discomfort Status: Acute (3) UGIB (upper gastrointestinal bleed) Status: Acute (4) Diabetes 1.5, managed as type 2 Status: Chronic
[2018-03-19] MEDS: (Novolin R) Insulin Human Regular 100 units/ml vial SC SCH ×4 (07:16→21:37)
[2018-03-19] MEDS: Ferric Sodium Gluconat Complex 62.5 mg/5 ml Vial IVPB SCH (10:37)
[2018-03-19] MEDS ORDERED: Lactated Ringer's 1,000 ML IV ONE (13:06)
[2018-03-19] MEDS ORDERED: Propofol 10 mg/ml Inj (20 ML) ONE (13:08)
[2018-03-19] MEDS: guaiFENesin 200 mg/10 ml Syrup UD PO PRN ×2 (16:02→20:17)
--- NOTE | 2018-03-19 19:45 | CP.PCM.PN ---
Subjective - Date & Time of Evaluation Date of Evaluation: 03/19/18 Time of Evaluation: 12:00 - Subjective Subjective: discussed with GI stable for endoscopy Objective - Vital Signs/Intake and Output Vital Signs (last 24 hours): Temp Pulse Resp BP Pulse Ox 98 F 86 20 104/66 96 03/19/18 15:11 03/19/18 15:12 03/19/18 15:11 03/19/18 15:11 03/19/18 15:11 - Medications Medications: Current Medications Acetaminophen (Tylenol 325mg Tab) 650 mg PO Q6 PRN PRN Reason: Fever >100.4 F Aspirin (Ecotrin) 81 mg PO DAILY [facility] Last Admin: 03/19/18 10:37 Dose: Not Given Clopidogrel Bisulfate (Plavix) 75 mg PO DAILY [facility] Last Admin: 03/19/18 10:38 Dose: Not Given Docusate Sodium (Colace) 100 mg PO BID PRN PRN Reason: Constipation Last Admin: 03/18/18 17:13 Dose: 100 mg Famotidine (Pepcid) 20 mg PO DAILY [facility] Last Admin: 03/19/18 10:38 Dose: Not Given Ferric Sodium Gluconate Complex (Ferrlecit) 125 mg IVPB DAILY [facility] Stop: 03/27/18 10:01 Last Admin: 03/19/18 10:37 Dose: 125 mg Guaifenesin (Robitussin) 200 mg PO Q4H PRN PRN Reason: Cough and congestion Last Admin: 03/19/18 16:02 Dose: 200 mg Insulin Human Regular (Novolin R) 0 unit SC ACHS [facility] PRN Reason: Protocol Last Admin: 03/19/18 17:00 Dose: 4 unit [facility] Last Admin: 03/19/18 16:02 Dose: 500 mg Metoclopramide HCl (Reglan) 5 mg IVP Q6H [facility] Last Admin: 03/19/18 15:20 Dose: Not Given Metoprolol Tartrate (Lopressor) 50 mg PO BID [facility] Last Admin: 03/19/18 17:30 Dose: Not Given Oxycodone/Acetaminophen (Percocet 5/325 Mg Tab) 1 tab PO Q4H PRN PRN Reason: Pain, moderate (4-7) Stop: 03/21/18 16:09 Last Admin: 03/18/18 21:52 Dose: 1 tab Rosuvastatin Calcium (Crestor) 20 mg PO HS [facility] Last Admin: 03/18/18 21:52 Dose: 20 mg Sitagliptin Phosphate (Januvia) 100 mg PO DAILY [facility] Last Admin: 03/19/18 10:37 Dose: Not Given Tamsulosin HCl (Flomax) 0.4 mg PO DAILY [facility] Last Admin: 03/19/18 10:37 Dose: Not Given - Labs Labs: 03/18/18 06:30 03/17/18 06:26 PT 11.6 SECONDS (9.7-12.2) 03/16/18 07:20 INR 1.1 03/16/18 07:20 APTT 32 SECONDS (21-34) 03/16/18 07:20 - Constitutional Appears: Non-toxic - Head Exam Head Exam: ATRAUMATIC - Eye Exam Eye Exam: EOMI - ENT Exam ENT Exam: Mucous Membranes Moist - Neck Exam Neck Exam: absent: Lymphadenopathy, Thyromegaly - Respiratory Exam Respiratory Exam: Clear to Ausculation Bilateral. absent: Rales - Cardiovascular Exam Cardiovascular Exam: REGULAR RHYTHM, Murmur - GI/Abdominal Exam GI & Abdominal Exam: Soft, Normal Bowel Sounds. absent: Tenderness, Organomegaly - Rectal Exam Rectal Exam: Deferred - Extremities Exam Extremities Exam: Normal Capillary Refill. absent: Calf Tenderness - Neurological Exam Neurological Exam: Alert, Oriented x3 - Psychiatric Exam Psychiatric exam: Normal Mood - Skin Skin Exam: Dry Assessment and Plan (1) Status post aorto-coronary artery bypass graft Status: Chronic (2) Chest discomfort Status: Acute (3) UGIB (upper gastrointestinal bleed) Status: Acute (4) Diabetes 1.5, managed as type 2 Status: Chronic
[2018-03-19] MEDS: Oxycodone/Acetaminophen 5/325 mg Tab PO PRN (23:56)
[2018-03-20] MEDS: (Novolin R) Insulin Human Regular 100 units/ml vial SC SCH ×4 (08:45→21:45)
[2018-03-20] MEDS: Ferric Sodium Gluconat Complex 62.5 mg/5 ml Vial IVPB SCH (10:19)
[2018-03-20] MEDS: guaiFENesin 200 mg/10 ml Syrup UD PO PRN (10:37)
--- NOTE | 2018-03-20 13:36 | CP.PCM.PN ---
Subjective - Date & Time of Evaluation Date of Evaluation: 03/18/18 Time of Evaluation: 17:00 - Subjective Subjective: No complaints For PRBC transfusion Objective - Vital Signs/Intake and Output Vital Signs (last 24 hours): Temp Pulse Resp BP Pulse Ox 98.5 F 91 H 20 115/76 94 L 03/20/18 09:20 03/20/18 09:20 03/20/18 09:20 03/20/18 09:20 03/20/18 09:20 Intake and Output: 03/20/18 03/20/18 06:59 18:59 Intake Total 360 Balance 360 - Medications Medications: Current Medications Acetaminophen (Tylenol 325mg Tab) 650 mg PO Q6 PRN PRN Reason: Fever >100.4 F Aspirin (Ecotrin) 81 mg PO DAILY [facility] Last Admin: 03/20/18 10:20 Dose: 81 mg Clopidogrel Bisulfate (Plavix) 75 mg PO DAILY [facility] Last Admin: 03/20/18 10:20 Dose: 75 mg Docusate Sodium (Colace) 100 mg PO BID PRN PRN Reason: Constipation Last Admin: 03/18/18 17:13 Dose: 100 mg Famotidine (Pepcid) 20 mg PO DAILY [facility] Last Admin: 03/20/18 10:20 Dose: 20 mg Ferric Sodium Gluconate Complex (Ferrlecit) 125 mg IVPB DAILY [facility] Stop: 03/27/18 10:01 Last Admin: 03/20/18 10:19 Dose: 125 mg Guaifenesin (Robitussin) 200 mg PO Q4H PRN PRN Reason: Cough and congestion Last Admin: 03/20/18 10:37 Dose: 200 mg Insulin Human Regular (Novolin R) 0 unit SC [facility] PRN Reason: Protocol Last Admin: 03/20/18 13:09 Dose: 2 unit Metformin HCl (Glucophage) 500 mg PO BIDCC [facility] Last Admin: 03/20/18 08:46 Dose: 500 mg Metoclopramide HCl (Reglan) 5 mg IVP Q6H [facility] Last Admin: 03/20/18 08:46 Dose: 5 mg Metoprolol Tartrate (Lopressor) 50 mg PO BID [facility] Last Admin: 03/20/18 10:20 Dose: 50 mg Oxycodone/Acetaminophen (Percocet 5/325 Mg Tab) 1 tab PO Q4H PRN PRN Reason: Pain, moderate (4-7) Stop: 03/21/18 16:09 Last Admin: 03/19/18 23:56 Dose: 1 tab Rosuvastatin Calcium (Crestor) 20 mg PO HS [facility] Last Admin: 03/19/18 21:39 Dose: 20 mg Sitagliptin Phosphate (Januvia) 100 mg PO DAILY [facility] Last Admin: 03/20/18 10:20 Dose: 100 mg Tamsulosin HCl (Flomax) 0.4 mg PO DAILY [facility] Last Admin: 03/20/18 10:20 Dose: 0.4 mg - Labs Labs: 03/18/18 06:30 03/17/18 06:26 PT 11.6 SECONDS (9.7-12.2) 03/16/18 07:20 INR 1.1 03/16/18 07:20 APTT 32 SECONDS (21-34) 03/16/18 07:20 - Head Exam Head Exam: ATRAUMATIC - Eye Exam Eye Exam: Normal appearance - ENT Exam ENT Exam: Mucous Membranes Dry - Respiratory Exam Respiratory Exam: NORMAL BREATHING PATTERN - Cardiovascular Exam Cardiovascular Exam: +S1, +S2 - GI/Abdominal Exam GI & Abdominal Exam: Normal Bowel Sounds Assessment and Plan (1) Anemia Assessment & Plan: iron deficiency anemia GI w/u transfusion support IV iron Status: Acute
--- NOTE | 2018-03-20 13:38 | CP.PCM.PN ---
Subjective - Date & Time of Evaluation Date of Evaluation: 03/19/18 Time of Evaluation: 15:00 - Subjective Subjective: Feeling better Objective - Vital Signs/Intake and Output Vital Signs (last 24 hours): Temp Pulse Resp BP Pulse Ox 98.5 F 91 H 20 115/76 94 L 03/20/18 09:20 03/20/18 09:20 03/20/18 09:20 03/20/18 09:20 03/20/18 09:20 Intake and Output: 03/20/18 03/20/18 06:59 18:59 Intake Total 360 Balance 360 - Medications Medications: Current Medications Acetaminophen (Tylenol 325mg Tab) 650 mg PO Q6 PRN PRN Reason: Fever >100.4 F Aspirin (Ecotrin) 81 mg PO DAILY [facility] Last Admin: 03/20/18 10:20 Dose: 81 mg Clopidogrel Bisulfate (Plavix) 75 mg PO DAILY [facility] Last Admin: 03/20/18 10:20 Dose: 75 mg Docusate Sodium (Colace) 100 mg PO BID PRN PRN Reason: Constipation Last Admin: 03/18/18 17:13 Dose: 100 mg Famotidine (Pepcid) 20 mg PO DAILY [facility] Last Admin: 03/20/18 10:20 Dose: 20 mg Ferric Sodium Gluconate Complex (Ferrlecit) 125 mg IVPB DAILY [facility] Stop: 03/27/18 10:01 Last Admin: 03/20/18 10:19 Dose: 125 mg Guaifenesin (Robitussin) 200 mg PO Q4H PRN PRN Reason: Cough and congestion Last Admin: 03/20/18 10:37 Dose: 200 mg Insulin Human Regular (Novolin R) 0 unit SC [facility] PRN Reason: Protocol Last Admin: 03/20/18 13:09 Dose: 2 [facility] Last Admin: 03/20/18 08:46 Dose: 500 mg Metoclopramide HCl (Reglan) 5 mg IVP Q6H [facility] Last Admin: 03/20/18 08:46 Dose: 5 mg Metoprolol Tartrate (Lopressor) 50 mg PO BID [facility] Last Admin: 03/20/18 10:20 Dose: 50 mg Oxycodone/Acetaminophen (Percocet 5/325 Mg Tab) 1 tab PO Q4H PRN PRN Reason: Pain, moderate (4-7) Stop: 03/21/18 16:09 Last Admin: 03/19/18 23:56 Dose: 1 tab Rosuvastatin Calcium (Crestor) 20 mg PO HS [facility] Last Admin: 03/19/18 21:39 Dose: 20 mg Sitagliptin Phosphate (Januvia) 100 mg PO DAILY [facility] Last Admin: 03/20/18 10:20 Dose: 100 mg Tamsulosin HCl (Flomax) 0.4 mg PO DAILY [facility] Last Admin: 03/20/18 10:20 Dose: 0.4 mg - Labs Labs: 03/18/18 06:30 03/17/18 06:26 PT 11.6 SECONDS (9.7-12.2) 03/16/18 07:20 INR 1.1 03/16/18 07:20 APTT 32 SECONDS (21-34) 03/16/18 07:20 - Head Exam Head Exam: ATRAUMATIC - Eye Exam Eye Exam: Normal appearance - ENT Exam ENT Exam: Mucous Membranes Dry - Respiratory Exam Respiratory Exam: NORMAL BREATHING PATTERN - Cardiovascular Exam Cardiovascular Exam: +S1, +S2 - GI/Abdominal Exam GI & Abdominal Exam: Normal Bowel Sounds Assessment and Plan (1) Anemia Assessment & Plan: iron deficiency anemia GI w/u transfusion support IV iron ? stomach tumor found at [facility] [place]; will obtain records. Status: Acute
[2018-03-20] MEDS: Oxycodone/Acetaminophen 5/325 mg Tab PO PRN (14:27)
--- NOTE | 2018-03-20 15:04 | PN ---
DATE: 03/20/2018 LOCATION: 651, bed B. SUBJECTIVE: This is a 58-year-old male seen and examined and found to be awake, alert, and oriented, post colonoscopy with bilobectomy without any reported active bleeding, nausea, or vomiting. The entire chart is reviewed including, but not limited to the most recent lab and radiology study results, current and the previous medication list, current and the previous medical events and today's blood glucose level is 165. Rest of the lab results still pending. The patient denied any chest pain or palpitations. No significant shortness of breath. PHYSICAL EXAMINATION: GENERAL: A 58-year-old male. VITAL SIGNS: Afebrile, with pulse of 92, respiratory rate 20 to 22, blood pressure 120/74. HEENT: Showed pale, dry oral mucous membranes. Nonicteric sclerae. LUNGS: Few scattered mild crepitations. Decreased air entry at bases. HEART: Positive S1 and S2. ABDOMEN: Soft, with mild distention. No mass or organomegaly. No rebound tenderness or guarding. NEUROLOGIC: No significant clinical changes and the patient has stable vital signs. IMPRESSION: 1. Colon polyps. 2. Reported recent history of gastrointestinal blood loss. 3. Known history of diabetes mellitus. 4. Anemia secondary to above. SUGGESTIONS: 1. Continue current management. 2. Blood transfusion as needed. 3. Follow up on pathology report results. 4. Further recommendations to follow. Yomaira Mcrae MD
[2018-03-20 17:06] VITALS: TEMP 98.3; O2SAT 96
[2018-03-20 17:45] VITALS: BP 105/65; RESP 18
[2018-03-20 20:33] VITALS: PULSE 71
--- NOTE | 2018-03-20 21:00 | CP.PCM.PN ---
Subjective - Date & Time of Evaluation Date of Evaluation: 03/20/18 Time of Evaluation: 16:00 - Subjective Subjective: No complaints. Objective - Vital Signs/Intake and Output Vital Signs (last 24 hours): Temp Pulse Resp BP Pulse Ox 98.3 F 71 18 105/65 96 03/20/18 15:00 03/20/18 20:22 03/20/18 18:00 03/20/18 18:00 03/20/18 15:00 - Medications Medications: Current Medications Acetaminophen (Tylenol 325mg Tab) 650 mg PO Q6 PRN PRN Reason: Fever >100.4 F Aspirin (Ecotrin) 81 mg PO DAILY [facility] Last Admin: 03/20/18 10:20 Dose: 81 mg Clopidogrel Bisulfate (Plavix) 75 mg PO DAILY [facility] Last Admin: 03/20/18 10:20 Dose: 75 mg Docusate Sodium (Colace) 100 mg PO BID PRN PRN Reason: Constipation Last Admin: 03/18/18 17:13 Dose: 100 mg Famotidine (Pepcid) 20 mg PO DAILY [facility] Last Admin: 03/20/18 10:20 Dose: 20 mg Ferric Sodium Gluconate Complex (Ferrlecit) 125 mg IVPB DAILY [facility] Stop: 03/27/18 10:01 Last Admin: 03/20/18 10:19 Dose: 125 mg Guaifenesin (Robitussin) 200 mg PO Q4H PRN PRN Reason: Cough and congestion Last Admin: 03/20/18 10:37 Dose: 200 mg Insulin Human Regular (Novolin R) 0 unit SC [facility] PRN Reason: Protocol Last Admin: 03/20/18 16:59 Dose: 3 unit [facility]) [facility] Last Admin: 03/20/18 16:59 Dose: 500 mg Metoclopramide HCl (Reglan) 5 mg IVP Q6H [facility] Last Admin: 03/20/18 19:15 Dose: 5 mg Metoprolol Tartrate (Lopressor) 50 mg PO BID [facility] Last Admin: 03/20/18 17:23 Dose: 50 mg Oxycodone/Acetaminophen (Percocet 5/325 Mg Tab) 1 tab PO Q4H PRN PRN Reason: Pain, moderate (4-7) Stop: 03/21/18 16:09 Last Admin: 03/20/18 14:27 Dose: 1 tab Rosuvastatin Calcium (Crestor) 20 mg PO HS [facility] Last Admin: 03/19/18 21:39 Dose: 20 mg Sitagliptin Phosphate (Januvia) 100 mg PO DAILY [facility] Last Admin: 03/20/18 10:20 Dose: 100 mg Tamsulosin HCl (Flomax) 0.4 mg PO DAILY [facility] Last Admin: 03/20/18 10:20 Dose: 0.4 mg - Labs Labs: 03/18/18 06:30 03/17/18 06:26 PT 11.6 SECONDS (9.7-12.2) 03/16/18 07:20 INR 1.1 03/16/18 07:20 APTT 32 SECONDS (21-34) 03/16/18 07:20 - Head Exam Head Exam: ATRAUMATIC - Eye Exam Eye Exam: Normal appearance - ENT Exam ENT Exam: Mucous Membranes Dry - Respiratory Exam Respiratory Exam: NORMAL BREATHING PATTERN - Cardiovascular Exam Cardiovascular Exam: +S1, +S2 - GI/Abdominal Exam GI & Abdominal Exam: Normal Bowel Sounds Assessment and Plan (1) Anemia Assessment & Plan: iron deficiency anemia GI w/u transfusion support IV iron ? stomach tumor found at [facility] [place]; will obtain records. outpatient f/u Status: Acute
--- NOTE | 2018-03-20 21:33 | CP.PCM.DIS ---
Provider - Provider Date of Admission: 03/16/18 08:18 Attending physician: Anabel Friedman MD Time Spent in preparation of Discharge (in minutes): 30 Diagnosis - Discharge Diagnosis (1) UGIB (upper gastrointestinal bleed) Status: Acute Comment: was transfused latest hemoglobin 8.8 no further melanotic stool. had the GI workup no active bleed (2) Status post aorto-coronary artery bypass graft Status: Chronic (3) Chest discomfort Status: Acute Comment: elevated TNI is chronic no acute NM continue workup and management as outpatient (4) Diabetes 1.5, managed as type 2 Status: Chronic Comment: glucose was about 120 throughout the stay Hospital Course - Lab Results Lab Results: Most Recent Lab Values WBC 9.6 K/uL (4.8-10.8) 03/18/18 06:30 RBC 3.11 Mil/uL (4.40-5.90) L 03/18/18 06:30 Hgb 8.8 g/dL (12.0-18.0) L 03/18/18 06:30 Hct 25.7 % (35.0-51.0) L 03/18/18 06:30 MCV 82.8 fL (80.0-94.0) 03/18/18 06:30 MCH 28.2 pg (27.0-31.0) 03/18/18 06:30 MCHC 34.1 g/dL (33.0-37.0) 03/18/18 06:30 RDW 17.0 % (11.5-14.5) H 03/18/18 06:30 Plt Count 318 K/uL (130-400) 03/18/18 06:30 MPV 7.5 fL (7.2-11.7) 03/18/18 06:30 Neut % (Auto) 80.4 % (50.0-75.0) H 03/18/18 06:30 Lymph % (Auto) 9.2 % (20.0-40.0) L 03/18/18 06:30 [place] % (Auto) 9.4 % (0.0-10.0) 03/18/18 06:30 Eos % (Auto) 0.6 % (0.0-4.0) 03/18/18 06:30 Baso % (Auto) 0.4 % (0.0-2.0) 03/18/18 06:30 Neut # (Auto) 7.7 K/uL (1.8-7.0) H 03/18/18 06:30 Lymph # (Auto) 0.9 K/uL (1.0-4.3) L 03/18/18 06:30 [place] # (Auto) 0.9 K/uL (0.0-0.8) H 03/18/18 06:30 Eos # (Auto) 0.1 K/uL (0.0-0.7) 03/18/18 06:30 Baso # (Auto) 0.0 K/uL (0.0-0.2) 03/18/18 06:30 Neutrophils % (Manual) 90 % (50-75) H 03/18/18 06:30 Lymphocytes % (Manual) 4 % (20-40) L 03/18/18 06:30 Monocytes % (Manual) 6 % (0-10) 03/18/18 06:30 Platelet Estimate Normal (NORMAL) 03/18/18 06:30 Polychromasia Slight 03/18/18 06:30 Hypochromasia (manual) Slight 03/18/18 06:30 Anisocytosis (manual) Slight 03/18/18 06:30 Ovalocytes Slight 03/18/18 06:30 Retic Count 3.7 % (0.5-1.5) H 03/18/18 06:30 PT 11.6 SECONDS (9.7-12.2) 03/16/18 07:20 INR 1.1 03/16/18 07:20 APTT 32 SECONDS (21-34) 03/16/18 07:20 Sodium 137 mmol/L (132-148) 03/17/18 06:26 Potassium 4.1 mmol/L (3.6-5.2) 03/17/18 06:26 Chloride 105 mmol/L (98-107) 03/17/18 06:26 Carbon Dioxide 21 mmol/L (22-30) L 03/17/18 06:26 Anion Gap 15 (10-20) 03/17/18 06:26 BUN 18 mg/dL (9-20) 03/17/18 06:26 Creatinine 1.3 mg/dL (0.8-1.5) 03/17/18 06:26 Est GFR ( Amer) > 60 03/17/18 06:26 Est GFR (Non-Af Amer) 56 03/17/18 06:26 POC Glucose (mg/dL) 205 mg/dL (65-110) H 03/20/18 16:09 Random Glucose 170 mg/dL (75-110) H 03/17/18 06:26 Hemoglobin A1c 6.2 % (4.2-6.5) 03/17/18 06:26 Calcium 9.9 mg/dl (8.6-10.4) 03/17/18 06:26 Ferritin 11.5 ng/mL 03/18/18 06:30 Total Bilirubin 0.9 mg/dL (0.2-1.3) 03/17/18 06:26 AST 19 U/L (17-59) 03/17/18 06:26 ALT 24 U/L (21-72) 03/17/18 06:26 Alkaline Phosphatase 65 U/L (38-126) 03/17/18 06:26 Troponin I 0.1580 ng/mL (0.00-0.120) H* 03/17/18 06:26 NT-Pro-B Natriuret Pep 1550 pg/mL (0-900) H 03/16/18 07:20 Total Protein 6.7 g/dL (6.3-8.3) 03/17/18 06:26 Albumin 3.7 g/dL (3.5-5.0) 03/17/18 06:26 Globulin 3.1 gm/dL (2.2-3.9) 03/17/18 06:26 Albumin/Globulin Ratio 1.2 (1.0-2.1) 03/17/18 06:26 Triglycerides 237 mg/dL (0-149) H 03/17/18 06:26 Cholesterol 85 mg/dL (0-199) 03/17/18 06:26 LDL Cholesterol Direct < 30 mg/dL (0-129) 03/17/18 06:26 HDL Cholesterol 24 mg/dL (30-70) L 03/17/18 06:26 Alpha Fetoprotein 1.2 ng/mL (0.0-7.5) 03/17/18 14:04 Carcinoembryonic Ag 0.7 ng/mL (0-3.0) 03/17/18 14:04 CA 19-9 Antigen 8.1 U/mL (0-37) 03/17/18 14:04 Vitamin B12 317 pg/mL (239-931) 03/18/18 06:30 Folate > 20.0 ng/mL 03/18/18 06:30 TSH 3rd Generation 0.34 mIU/L (0.46-4.68) L 03/17/18 06:26 Urine Color Straw (YELLOW) 03/16/18 22:10 Urine Clarity Clear (Clear) 03/16/18 22:10 Urine pH 6.0 (5.0-8.0) 03/16/18 22:10 Ur Specific Murphy 1.005 (1.003-1.030) 03/16/18 22:10 Urine Protein Negative mg/dL (NEGATIVE) 03/16/18 22:10 Urine Glucose (UA) Normal mg/dL (Normal) 03/16/18 22:10 Urine Ketones Negative mg/dL (NEGATIVE) 03/16/18 22:10 Urine Blood Negative (NEGATIVE) 03/16/18 22:10 Urine Nitrate Negative (NEGATIVE) 03/16/18 22:10 Urine Bilirubin Negative (NEGATIVE) 03/16/18 22:10 Urine Urobilinogen Normal mg/dL (0.2-1.0) 03/16/18 22:10 Ur Leukocyte Esterase Neg Janel/uL (Negative) 03/16/18 22:10 Urine RBC (Auto) < 1 /hpf (0-3) 03/16/18 22:10 Stool Occult Blood Positive (NEGATIVE) H 03/16/18 22:10 Blood Type A POSITIVE 03/16/18 08:37 Blood Type Confirm A POSITIVE 03/16/18 08:37 Antibody Screen Negative 03/16/18 08:37 - Hospital Course Hospital Course: 58 years old was admitted with melanotic stool and chest discomfort. He had mildly elevated TNI the same like he had 2 weeks ago at the [facility], no further intervention was done on that level. 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 absent: Rales - Cardiovascular Exam Cardiovascular Exam: REGULAR RHYTHM, Systolic Murmur - GI/Abdominal Exam GI & Abdominal Exam: Normal Bowel Sounds - Rectal Exam Rectal Exam: Deferred - Extremities Exam Extremities exam: normal capillary refill - Neurological Exam Neurological exam: Alert, Oriented x3 - Psychiatric Exam Psychiatric exam: Normal Mood - Skin Skin Exam: Dry Discharge Plan - Follow Up Plan Condition: GOOD Disposition: HOME/ ROUTINE
== END 2018-03-20 22:28 | disposition home or self-care (01) | DRG 175 ==
LOC: C.ER 06:51 → C.9E 08:18 → C.6T 10:47
PROVIDERS: ADMIT Internal Medicine Cardiovascular Disease; ATTEND Internal Medicine Cardiovascular Disease
PROC: 30233P1 Transfusion of Nonautologous Frozen Red Cells into Peripheral Vein, Percutaneous Approach (ICD-10-PCS; 2018-03-17)
PROC: 0DBL8ZZ Excision of Transverse Colon, Via Natural or Artificial Opening Endoscopic (ICD-10-PCS; principal; 2018-03-19 13:17)
DX: K92.2 Gastrointestinal hemorrhage, unspecified (principal); D49.0 Neoplasm of unspecified behavior of digestive system; E11.9 Type 2 diabetes mellitus without complications; E78.00 Pure hypercholesterolemia, unspecified; I10 Essential (primary) hypertension; I25.119 Atherosclerotic heart disease of native coronary artery with unspecified angina pectoris; N40.0 Benign prostatic hyperplasia without lower urinary tract symptoms; Z87.442 Personal history of urinary calculi; Z87.891 Personal history of nicotine dependence; Z95.1 Presence of aortocoronary bypass graft; Z95.5 Presence of coronary angioplasty implant and graft; I25.2 Old myocardial infarction; D50.0 Iron deficiency anemia secondary to blood loss (chronic); K63.5 Polyp of colon; K64.8 Other hemorrhoids; K64.4 Residual hemorrhoidal skin tags